=== PATIENT | female | born 1950 | race Caucasian/White ===

== ENCOUNTER 2018-12-19 17:42 | Emergency (ER) | payer BC ==
[2018-12-19 18:30] LABS: #Basophils 0.1 thou/uL (0.0-0.2); #Eosinphils 0.2 thou/uL (0.0-0.7); #Lymphocytes 1.6 thou/uL (1.20-3.40); #Monocytes 0.7 thou/uL (0.11-0.59); #Neutrophils 4.4 thou/uL (1.40-6.50); %Basophils 1.8 % (0.0-1.0); %Eosinophils 2.6 % (0.0-10.0); %Lymphocytes 23.3 % (21.0-51.0); %Monocytes 9.2 % (0.0-10.0); %Neutrophils 63.1 % (42.0-75.0); Hemoglobin 14.7 g/dL (12.0-16.0); Mean Corpuscular HGB CONC 33.5 g/dL (32.0-36.0); Mean Corpuscular Hemoglobin 31.2 pg (27.0-31.0); Mean Corpuscular Volume 93.1 fL (78.0-98.0); Mean Platelet Volume 8.5 fL (7.4-10.4); Platelet Count 239 thou/uL (130-400); RBC Distribution Width 11.6 % (11.5-14.5); Red Blood Cell (RBC) Count 4.71 mill/uL (4.20-5.40)
[2018-12-19 18:32] LABS: Bilirubin Negative (Negative); Blood, Urine Negative (Negative); Clarity Clear (Clear); Glucose, Urine (Dipstick) Negative (Negative); Leukocyte Trace (Negative); Nitrite Negative (Negative); Protein, Urine (Dipstick) Negative (Neg-Trace); Urobilinogen 0.2 mg/dL (0.2-1.0)
[2018-12-19 18:37] LABS: Bacteria/HPF 2+ HPF (None Seen); RBC/HPF 0-3 HPF (0-3); Squamous Epithelial 0-3 HPF (0-3)
--- NOTE | 2018-12-19 18:37 | RAD ---
Frontal radiograph chest 2 views of abdomen: 12/19/2018 COMPARISON: None HISTORY: Pain FINDINGS: No pneumothorax, pleural fluid, focal consolidation, or alveolar edema. No free intraperito faina air or evidence of bowel obstruction. Punctate calcifications are noted within the right midabdomen, right hemipelvis, mid left abdomen, and left upper quadrant. This could be related to bow el content and or renal calculi. IMPRESSION: No radiographic evidence of acute cardiopulmonary disease, free intraperitoneal air, or s mall bowel obstruction.
[2018-12-19 18:50] LABS: ALT (SGPT) 19 U/L (8-55); AST (SGOT) 22 U/L (5-34); Albumin 4.6 g/dL (3.4-4.8); Alkaline Phosphatase 97 U/L (40-150); Anion Gap 14 mmol/L (10-20); BUN (Urea Nitrogen) 10 mg/dL (9.8-20.1); Bilirubin, Total 0.6 mg/dL (0.2-1.2); Calc. Creatinine Clearance 0 mL/min (70-130); Calcium 9.9 mg/dL (7.8-10.44); Carbon Dioxide 25 mmol/L (23-31); Chloride 99 mmol/L (98-107); Estimated GFR-MDRD 67; Glucose 94 mg/dL (80-115); Lipase 23 U/L (8-78); Potassium 3.4 mmol/L (3.5-5.1); Protein, Total 8.6 g/dL (6.0-8.3); Sodium 135 mmol/L (136-145)
== END 2018-12-19 19:20 | disposition home or self-care (01) ==
LOC: SCSER 17:42
DX: K58.1 Irritable bowel syndrome with constipation (principal); I10 Essential (primary) hypertension; F41.9 Anxiety disorder, unspecified; Z79.899 Other long term (current) drug therapy
CPT/HCPCS: 74022; 80053; 81003; 81015; 83605; 83690; 84484; 85025; 87086; 93005

== ENCOUNTER 2020-10-23 09:26 | Outpatient (CLI) | payer MEDICARE | END 2020-10-23 09:27 | disposition home or self-care (01) | LOC: TBSIIMAG 09:26 | PROVIDERS: ATTEND Internal Medicine | DX: M17.12 Unilateral primary osteoarthritis, left knee (principal); M25.462 Effusion, left knee; M25.762 Osteophyte, left knee ==

== ENCOUNTER 2021-01-29 12:28 | Outpatient (CLI) | payer MEDICARE ==
[2021-01-29 14:50] LABS: Bilirubin Neg (Negative); Blood, Urine Negative (Negative); Clarity Clear (Clear); Glucose, Urine (Dipstick) Normal (Negative); Ketone, Urine Negative (Negative); Leukocyte 100 (Negative); Nitrite Negative (Negative); Protein, Urine (Dipstick) Negative (Neg-Trace); Specific Gravity, Urine 1.005 (1.002-1.036); Urobilinogen Normal mg/dL (Less than 2)
[2021-01-29 15:03] LABS: RBC/HPF None Seen HPF (0-3); WBC/HPF 0-3 HPF (0-3)
[2021-01-29 15:05] LABS: Bacteria/HPF 2+ HPF (None Seen)
[2021-01-29 15:14] LABS: Anion Gap 12 mmol/L (10-20); BUN (Urea Nitrogen) 13 mg/dL (9.8-20.1); Calc. Creatinine Clearance 0 mL/min (70-130); Calcium 9.3 mg/dL (7.8-10.44); Carbon Dioxide 25 mmol/L (23-31); Chloride 106 mmol/L (98-107); Glucose 92 mg/dL (83-110); Potassium 4.2 mmol/L (3.5-5.1); Prothrombin Time 10.9 sec (9.5-12.1); Sodium 139 mmol/L (136-145)
[2021-01-29 15:37] LABS: #Basophils 0.1 10x3/uL (0.0-0.2); #Eosinphils 0.2 10x3/uL (0.0-0.5); #Monocytes 0.6 10x3/uL (0.0-1.1); #Neutrophils 4.2 10x3/uL (1.5-8.4); %Lymphocytes 19.4 % (18.0-47.0); %Monocytes 9.2 % (0.0-10.0); %Neutrophils 66.9 % (40.0-75.0); Hemoglobin 12.8 g/dL (12.0-15.5); Mean Corpuscular HGB CONC 33.3 g/dL (32.0-36.0); Mean Corpuscular Hemoglobin 31.2 pg (27.0-33.0); Mean Corpuscular Volume 93.7 fl (81.6-98.3); Mean Platelet Volume 11.3 fl (7.4-10.4); Platelet Count 253 10x3/uL (150-450); White Blood Cell (WBC) Count 6.3 10x3/uL (3.5-10.5)
== END 2021-01-29 12:29 | disposition home or self-care (01) ==
LOC: LABBT 12:28
PROVIDERS: ATTEND Orthopaedic Surgery
DX: Z01.818 Encounter for other preprocedural examination (principal); M17.12 Unilateral primary osteoarthritis, left knee
CPT/HCPCS: 80048; 81001; 85025; 85610; 87081; 93005; 93010

== ENCOUNTER 2021-02-03 05:34 | Inpatient (IN) | payer MEDICARE ==
[2021-01-31 08:50] VITALS: BMI 34.7
[2021-02-03] MEDS ORDERED: Fentanyl 100 MCG/2 ML VIAL ONE ×3 (06:05→09:14)
[2021-02-03] MEDS ORDERED: Vancomycin 1.5 GRAM/300 ML BAG 1.5 GM in Premix Bag 1 BAG IVPB SCH (06:15)
[2021-02-03] MEDS ORDERED: Sodium Chloride 0.9% 100 ML ONE (06:32)
[2021-02-03] MEDS ORDERED: Tranexamic Acid 1,000 MG/10 ML VIAL ONE (06:32)
[2021-02-03] MEDS ORDERED: Midazolam HCl 2 mg/2 ml Vial ONE (06:39)
[2021-02-03] MEDS ORDERED: Lidocaine 1% (PF) 30 ML VIAL ONE (06:40)
[2021-02-03] MEDS ORDERED: Zolpidem Tartrate 5 MG TAB PO PRN ×2 (07:08→08:15)
[2021-02-03] MEDS ORDERED: diphenhydrAMINE 25 MG CAP PO PRN (07:08)
[2021-02-03] MEDS ORDERED: Promethazine HCl 25 MG/ML VIAL IM PRN ×3 (07:08→08:48)
[2021-02-03] MEDS ORDERED: Ondansetron PF 4 MG/2 ML Vial IVP PRN ×2 (07:08→08:15)
[2021-02-03] MEDS ORDERED: HYDROcodone/Acetaminophen 10/325 mg Tablet PO PRN ×4 (07:08→08:15)
[2021-02-03] MEDS ORDERED: Acetaminophen 325 MG TAB PO PRN (07:08)
[2021-02-03] MEDS ORDERED: ePHEDrine Sulfate 50 MG/10 ML VIAL ONE (07:24)
[2021-02-03] MEDS ORDERED: Ropivacaine 2% HCl/PF (20 MG/10 ML VIAL) ONE (07:24)
[2021-02-03] MEDS ORDERED: Lidocaine 1% PF 5 ML VIAL ONE (07:24)
[2021-02-03] MEDS ORDERED: Dexamethasone 20 MG/5 ML VIAL ONE (07:24)
[2021-02-03] MEDS ORDERED: Ondansetron PF 4 MG/2 ML Vial ONE (07:24)
[2021-02-03] MEDS ORDERED: PROPOFOL 200 MG/20 ML VIAL ONE (07:24)
[2021-02-03] MEDS ORDERED: Bupivacaine HCl 0.5%/Epinephrine 1:200,000/PF 30 ml Vial ONE (07:24)
[2021-02-03] MEDS ORDERED: Fentanyl 100 MCG/2 ML VIAL SLOW IVP PRN (08:09)
[2021-02-03] MEDS ORDERED: traMADol HCl 50 MG TAB PO PRN ×2 (08:15)
[2021-02-03] MEDS ORDERED: Ropivacaine HCl/PF 250 ML in Premix Bag 1 BAG NERVE BLCK SCH (08:15)
[2021-02-03] MEDS ORDERED: Ondansetron HCl/PF 4 MG/2 ML Vial IVP PRN (08:48)
[2021-02-03] MEDS ORDERED: Promethazine HCl 25 MG/ML VIAL IVPB PRN (08:48)
[2021-02-03] MEDS: Ramipril 5 MG CAP PO SCH (11:09)
[2021-02-03] MEDS: Aspirin 81 mg Enteric Coated Tablet PO SCH ×2 (11:09→20:08)
[2021-02-03] MEDS: Amlodipine 10 MG TAB PO SCH (11:09)
[2021-02-03] MEDS: Ketorolac Tromethamine 30 MG/ML VIAL IVP SCH ×3 (11:11→23:09)
[2021-02-03] MEDS: CEFAZOLIN 2 GM in Premix Bag 1 BAG IVPB SCH ×2 (14:42→23:08)
[2021-02-03] MEDS: ALPRAZolam 0.5 MG TAB PO SCH (20:08)
[2021-02-04] MEDS: Ketorolac Tromethamine 30 MG/ML VIAL IVP SCH ×4 (05:39→23:24)
[2021-02-04 05:50] LABS: Hemoglobin 11.7 g/dL (12.0-16.0); Mean Corpuscular HGB CONC 33.6 g/dL (32.0-36.0); Mean Corpuscular Hemoglobin 32.2 pg (27.0-31.0); Mean Corpuscular Volume 95.8 fL (78.0-98.0); Platelet Count 203 thou/uL (130-400); RBC Distribution Width 11.9 % (11.5-14.5); Red Blood Cell (RBC) Count 3.63 mill/uL (4.20-5.40); White Blood Cell (WBC) Count 16.2 thou/uL (4.8-10.8)
[2021-02-04 05:51] LABS: Mean Platelet Volume 8.4 fL (7.4-10.4)
[2021-02-04] MEDS: Multivitamin W/ Minerals 1 TAB PO SCH (08:27)
[2021-02-04] MEDS: Ferrous Gluconate 324 MG TAB PO SCH ×2 (08:27→17:27)
[2021-02-04] MEDS: Aspirin 81 mg Enteric Coated Tablet PO SCH ×2 (08:27→20:47)
[2021-02-04] MEDS: Senokot S 8.6-50 MG TAB PO SCH ×2 (08:27→20:46)
[2021-02-04] MEDS: Amlodipine 10 MG TAB PO SCH (08:28)
[2021-02-04] MEDS: Ramipril 5 MG CAP PO SCH (08:28)
[2021-02-04] MEDS: ALPRAZolam 0.5 MG TAB PO SCH (20:47)
[2021-02-04] MEDS ORDERED: Amlodipine 10 MG TAB PO SCH (21:00)
[2021-02-05] MEDS: Ketorolac Tromethamine 30 MG/ML VIAL IVP SCH (05:22)
[2021-02-05 06:46] LABS: Hemoglobin 11.5 g/dL (12.0-16.0); Mean Corpuscular Hemoglobin 33.8 pg (27.0-31.0); Mean Corpuscular Volume 96.6 fL (78.0-98.0); Platelet Count 182 thou/uL (130-400); RBC Distribution Width 12.2 % (11.5-14.5); Red Blood Cell (RBC) Count 3.41 mill/uL (4.20-5.40); White Blood Cell (WBC) Count 10.8 thou/uL (4.8-10.8)
[2021-02-05 08:01] VITALS: BP 145/71; TEMP 98
[2021-02-05] MEDS: Ramipril 5 MG CAP PO SCH (08:25)
[2021-02-05] MEDS: Senokot S 8.6-50 MG TAB PO SCH (08:25)
[2021-02-05] MEDS: Multivitamin W/ Minerals 1 TAB PO SCH (08:25)
[2021-02-05] MEDS: Aspirin 81 mg Enteric Coated Tablet PO SCH (08:25)
[2021-02-05] MEDS: Ferrous Gluconate 324 MG TAB PO SCH (08:25)
== END 2021-02-05 12:15 | disposition home or self-care (01) | DRG 470 ==
LOC: SDC 05:34 → SJJU 07:08
PROVIDERS: ADMIT Orthopaedic Surgery; ATTEND Orthopaedic Surgery
PROC: 0SRD0J9 Replacement of Left Knee Joint with Synthetic Substitute, Cemented, Open Approach (ICD-10-PCS; principal; 2021-02-03)
DX: M17.12 Unilateral primary osteoarthritis, left knee (principal); M23.307 Other meniscus derangements, unspecified meniscus, left knee; I10 Essential (primary) hypertension; F41.9 Anxiety disorder, unspecified; Z90.49 Acquired absence of other specified parts of digestive tract; Z90.89 Acquired absence of other organs; Z90.722 Acquired absence of ovaries, bilateral; Z98.890 Other specified postprocedural states; Z85.820 Personal history of malignant melanoma of skin; Z79.899 Other long term (current) drug therapy; Z90.710 Acquired absence of both cervix and uterus; Z88.2 Allergy status to sulfonamides
CPT/HCPCS: 36415; 85027; C1713; C1776; J0690; J1100; J1885; J2001; J2250; J2405; J2704; J2795; J3010; J3370; J3490

== ENCOUNTER 2023-04-28 13:43 | Outpatient (CLI) | payer MEDICARE ==
[2023-04-28 14:36] LABS: #Basophils 0.1 10x3/uL (0.0-0.2); #Eosinphils 0.1 10x3/uL (0.0-0.5); #Monocytes 0.6 10x3/uL (0.0-1.1); %Monocytes 10.4 % (0.0-10.0); %Neutrophils 69.3 % (40.0-75.0); Hematocrit 39.1 % (34.9-44.5); Hemoglobin 13.2 g/dL (12.0-15.5); Mean Corpuscular HGB CONC 33.8 g/dL (32.0-36.0); Mean Corpuscular Hemoglobin 31.7 pg (27.0-33.0); Mean Corpuscular Volume 93.8 fl (81.6-98.3); Mean Platelet Volume 11.1 fl (7.4-10.4); Platelet Count 222 10x3/uL (150-450); RBC Distribution Width 11.9 % (11.5-14.5); Red Blood Cell (RBC) Count 4.17 10x6/uL (3.90-5.03); White Blood Cell (WBC) Count 5.8 10x3/uL (3.5-10.5)
[2023-04-28 14:46] LABS: Anion Gap 11 mmol/L (10-20); BUN (Urea Nitrogen) 17 mg/dL (9.8-20.1); Calc. Creatinine Clearance 0 mL/min (70-130); Calcium 8.8 mg/dL (7.8-10.44); Carbon Dioxide 27 mmol/L (23-31); Chloride 103 mmol/L (98-107); Estimated GFR 59; Glucose 120 mg/dL (83-110); Sodium 137 mmol/L (136-145)
[2023-04-28 14:54] LABS: Prothrombin Time 10.6 sec (9.5-12.1)
== END 2023-04-28 13:44 | disposition home or self-care (01) ==
LOC: LABBT 13:43
PROVIDERS: ATTEND Orthopaedic Surgery
DX: Z01.812 Encounter for preprocedural laboratory examination (principal); M17.11 Unilateral primary osteoarthritis, right knee
CPT/HCPCS: 80048; 85025; 85610; 87081

== ENCOUNTER 2024-04-17 09:28 | Outpatient (CLI) | payer MEDICARE | END 2024-04-17 09:29 | disposition home or self-care (01) | LOC: BICRAD 09:28 | PROVIDERS: ATTEND Internal Medicine Gastroenterology | DX: K58.1 Irritable bowel syndrome with constipation (principal) | CPT/HCPCS: 74018 ==